=== PATIENT | female | born 1955 | race Caucasian/White ===

== ENCOUNTER → 2023-10-10 06:22 | Day surgery (SDC) | payer MEDICARE, SELFPAY | LOC: GI 06:22 | PROVIDERS: ATTENDING PHYSICIAN Surgery | DX: Z12.11 Encounter for screening for malignant neoplasm of colon (principal); Z80.0 Family history of malignant neoplasm of digestive organs; K57.30 Diverticulosis of large intestine without perforation or abscess without bleeding; K64.9 Unspecified hemorrhoids | CPT/HCPCS: 46221; G0105 ==

== ENCOUNTER → 2024-02-23 07:15 | Outpatient (REF) | payer MEDICARE, SELFPAY ==
[2024-02-23 08:13] LABS: % Basophils 1.9 % (0-2); % Eosinophils 2.6 % (0-6); % Immature Granulocytes 0.2 % (0-0.5); % Lymphocytes 33.9 % (20.5-51.1); % Monocytes 9.7 % (1.7-9.3); % Neutrophils 51.7 % (42.2-75.2); Absolute Basophils 0.1 10^3/uL (0-0.2); Absolute Eosinophils 0.2 10^3/uL (0-0.7); Absolute Lymphocytes 1.9 10^3/uL (1.2-3.4); Absolute Monocytes 0.6 10^3/uL (0.1-0.6); Absolute Neutrophils 2.9 10^3/uL (1.4-6.5); Hematocrit 36.2 % (37.0-47.0); Hemoglobin 12.2 g/dL (12.0-16.0); Mean Corp Hgb Conc. 33.7 g/dL (33.0-37.0); Mean Corpuscular Hgb 30.1 pg (27.0-31.0); Mean Corpuscular Volume 89.4 fL (81.0-99.0); Mean Platelet Volume 9.8 fL (7.4-10.4); Nucleated Red Blood Cells % 0 %; Platelet Count 302 10^3/uL (130-400); Red Blood Cell Count 4.05 10^6/uL (4.20-5.40); Red Cell Dist. Width 12.6 % (11.5-14.5); White Blood Cell Count 5.7 10^3/uL (4.8-10.8)
[2024-02-23 08:40] LABS: ALT (SGPT) 18 U/L (0-35); AST (SGOT) 25 U/L (14-36); Albumin 4.4 g/dl (3.5-5.0); Alkaline Phosphatase 60 U/L (38-126); Blood Urea Nitrogen 20 mg/dl (7-17); Calcium 9.7 mg/dl (8.4-10.2); Carbon Dioxide 27 mmol/L (22-30); Chloride 106 mmol/L (98-107); Glucose 100 mg/dl (70-99); HDL Cholesterol 58 mg/dl; LDL Cholesterol, Calculated 169 mg/dl; Sodium 139 mmol/L (135-145); Total Bilirubin 0.6 mg/dl (0.2-1.3); Total Cholesterol 249 mg/dl (50-199); Total Protein 6.8 g/dl (6.3-8.2); Triglyceride 112 mg/dl (10-149); Very Low Density Lipoprotein 22 mg/dl (0-30); eGFR > 60.00
[2024-02-23 08:46] LABS: Potassium 4.8 mmol/L (3.5-5.1)
[2024-02-23 08:58] LABS: Free T4 1.45 ng/dl (0.78-2.19)
[2024-02-23 09:12] LABS: TSH 2.65 uIU/ml (0.47-4.68)
[2024-02-23 11:33] LABS: Urine Albumin Negative (Neg - Trace); Urine Bilirubin Negative (Negative); Urine Character Clear (Clear); Urine Color Yellow; Urine Glucose Negative (Negative); Urine Ketone Negative (Negative); Urine Leukocyte Negative (Negative); Urine Nitrite Negative (Negative); Urine Occult Blood Negative (Negative); Urine Specific Gravity 1.015 (<1.030); Urine Urobilinogen Negative (Neg - 1+)
== END ==
LOC: MRI 3T 07:15
PROVIDERS: ATTENDING PHYSICIAN Podiatrist Foot & Ankle Surgery; FAMILY PHYSICIAN Family Medicine
DX: Z00.00 Encounter for general adult medical examination without abnormal findings (principal); Z13.29 Encounter for screening for other suspected endocrine disorder; Z13.220 Encounter for screening for lipoid disorders; Z13.228 Encounter for screening for other metabolic disorders; Z13.0 Encounter for screening for diseases of the blood and blood-forming organs and certain disorders involving the immune mechanism; E78.5 Hyperlipidemia, unspecified; E03.9 Hypothyroidism, unspecified
CPT/HCPCS: 36415; 73718; 80053; 80061; 81003; 84439; 84443; 85025

== ENCOUNTER → 2024-03-23 08:17 | Outpatient (REF) | payer MEDICARE, SELFPAY | LOC: MRI 3T 08:17 | PROVIDERS: ATTENDING PHYSICIAN Podiatrist Foot & Ankle Surgery; FAMILY PHYSICIAN Family Medicine | DX: S92.002A Unspecified fracture of left calcaneus, initial encounter for closed fracture (principal); M79.A22 Nontraumatic compartment syndrome of left lower extremity | CPT/HCPCS: 73718 ==

== ENCOUNTER → 2024-03-28 14:51 | Outpatient (REF) | payer MEDICARE, SELFPAY ==
[2024-03-28 15:02] VITALS: BP 164/79; BP_SYST 89
== END ==
LOC: RADI 14:51
PROVIDERS: ATTENDING PHYSICIAN Podiatrist Foot & Ankle Surgery
DX: M77.31 Calcaneal spur, right foot (principal); M77.32 Calcaneal spur, left foot; M79.672 Pain in left foot; M79.671 Pain in right foot
CPT/HCPCS: 20550; 76882; 76942

== ENCOUNTER → 2024-05-18 06:46 | Outpatient (REF) | payer MEDICARE, SELFPAY | LOC: MRI 06:46 | PROVIDERS: ATTENDING PHYSICIAN Physician Assistant Surgical; FAMILY PHYSICIAN Family Medicine | DX: M48.062 Spinal stenosis, lumbar region with neurogenic claudication (principal); M54.50 Low back pain, unspecified; M54.16 Radiculopathy, lumbar region | CPT/HCPCS: 72148 ==

== ENCOUNTER → 2024-07-26 08:37 | Outpatient (REF) | payer MEDICARE, SELFPAY ==
[2024-07-26 09:58] LABS: ALT (SGPT) 15 U/L (0-35); AST (SGOT) 19 U/L (14-36); Albumin 4.5 g/dl (3.5-5.0); Alkaline Phosphatase 53 U/L (38-126); Blood Urea Nitrogen 25 mg/dl (7-17); Calcium 9.8 mg/dl (8.4-10.2); Carbon Dioxide 26 mmol/L (22-30); Chloride 105 mmol/L (98-107); Direct Bilirubin 0.1 mg/dl (0.0-0.4); Glucose 100 mg/dl (70-99); HDL Cholesterol 66 mg/dl; LDL Cholesterol, Calculated 92 mg/dl; Potassium 4.4 mmol/L (3.5-5.1); Sodium 139 mmol/L (135-145); Total Bilirubin 0.5 mg/dl (0.2-1.3); Total Cholesterol 180 mg/dl (50-199); Total Protein 7.2 g/dl (6.3-8.2); Triglyceride 112 mg/dl (10-149); Very Low Density Lipoprotein 22 mg/dl (0-30); eGFR > 60.00
== END ==
LOC: REG 08:37
PROVIDERS: ATTENDING PHYSICIAN Family Medicine
DX: Z20.822 Contact with and (suspected) exposure to COVID-19 (principal); Z79.899 Other long term (current) drug therapy; Z00.00 Encounter for general adult medical examination without abnormal findings; Z13.29 Encounter for screening for other suspected endocrine disorder; Z13.220 Encounter for screening for lipoid disorders; Z13.228 Encounter for screening for other metabolic disorders
CPT/HCPCS: 36415; 80053; 80061; 82248

== ENCOUNTER → 2024-09-25 14:49 | Outpatient (REF) | payer MEDICARE, SELFPAY | LOC: RAD 14:49 | PROVIDERS: ATTENDING PHYSICIAN Family Medicine | DX: I65.23 Occlusion and stenosis of bilateral carotid arteries (principal) | CPT/HCPCS: 93880 ==

== ENCOUNTER 2024-11-22 08:17 | Inpatient (IN) | payer MEDICARE, SELFPAY ==
[2024-11-20 15:56] VITALS: BP 191/93
[2024-11-20 16:27] LABS: % Basophils 1.9 % (0-2); % Eosinophils 1.1 % (0-6); % Lymphocytes 33.3 % (20.5-51.1); % Monocytes 17.4 % (1.7-9.3); % Neutrophils 46.3 % (42.2-75.2); Absolute Basophils 0.1 10^3/uL (0-0.2); Absolute Eosinophils 0.1 10^3/uL (0-0.7); Absolute Lymphocytes 1.9 10^3/uL (1.2-3.4); Absolute Neutrophils 2.6 10^3/uL (1.4-6.5); Hemoglobin 12.3 g/dL (12.0-16.0); Mean Corp Hgb Conc. 33.2 g/dL (33.0-37.0); Mean Corpuscular Hgb 30.6 pg (27.0-31.0); Mean Platelet Volume 10.2 fL (7.4-10.4); Nucleated Red Blood Cells % 0 %; Platelet Count 261 10^3/uL (130-400); Red Blood Cell Count 4.02 10^6/uL (4.20-5.40); Red Cell Dist. Width 12.4 % (11.5-14.5); White Blood Cell Count 5.7 10^3/uL (4.8-10.8)
[2024-11-20 16:38] LABS: ALT (SGPT) 14 U/L (0-35); AST (SGOT) 20 U/L (14-36); Albumin 4.2 g/dl (3.5-5.0); Alkaline Phosphatase 54 U/L (38-126); Blood Urea Nitrogen 23 mg/dl (7-17); Calcium 9.8 mg/dl (8.4-10.2); Carbon Dioxide 25 mmol/L (22-30); Chloride 107 mmol/L (98-107); Glucose 107 mg/dl (70-99); Potassium 4.3 mmol/L (3.5-5.1); Sodium 143 mmol/L (135-145); Total Bilirubin 0.6 mg/dl (0.2-1.3); Total Protein 6.8 g/dl (6.3-8.2); eGFR > 60.00
[2024-11-20 16:49] LABS: Troponin I < 0.012 ng/ml
[2024-11-20] MEDS: LOW STRENGTH ASPIRIN 243 MG PO (19:17)
--- NOTE | 2024-11-20 19:19 | ED.GENMED ---
History of Present Illness
General
Chief Complaint: Chest Pain
Source: patient
Exam Limitations: none
Time Seen by Provider: 11/20/24 18:56
History of Present Illness
History of Present Illness:
See MDM
Past History
Past History
ED Past Medical History: GERD, Hypercholesterolemia and Hypothyroidism
ED Past Surgical History: Orthopedic
Social History
Tobacco: Non-smoker
Alcohol: None
Phy Exam
Physical Exam
Physical Exam:
See MDM
Scores
Heart Score for Chest Pain Patients
STEMI patient?: No
History: Highly Suspicious
ECG: Normal
Age: >/= 65 years
Risk Factors: 1 or 2 Risk Factors
Troponin: </= Normal Limit
Heart Score for Chest Pain Patients: 5
Heart Score Risk: 20.3% MACE over next 6 weeks
Course
Orders/Labs/Results
Orders:
Orders
11/20/24 15:53
EKG [Electrocardiogram (*1)] Urgent
Reason for Study: Chest Pain
EKG- Treatment ONCE
11/20/24 16:17
Complete Blood Count/With Diff Urgent
Comprehensive Metabolic Panel Urgent
Troponin I Urgent
11/20/24 19:13
Aspirin Chewable [Low Strength Aspirin] 243 mg PO NOW STA
CR Chest - 2 Views Urgent
Comment:
Reason For Exam: SOB with exertion
11/20/24 19:18
Consult Cardiology [CARDIOLOGY CONSULT] Routine
Consulting Provider: Dane Guzman
Was physician already notified: Yes
Abnormal Lab Results
11/20/24
16:17
RBC 4.02 L 10^6/uL
(4.20-5.40)
Absolute Monos (auto) 1.0 H 10^3/uL
(0.1-0.6)
Monocytes % 17.4 H %
(1.7-9.3)
BUN 23 H mg/dl
(7-17)
Glucose 107 H mg/dl
(70-99)
11/20/24 16:17
11/20/24 16:17
Vital Signs
Initial and Last Documented VS:
Initial Vital Signs
Temp Pulse Resp BP Pulse Ox
97.4 F 84 16 191/93 100
11/20/24 15:56 11/20/24 15:56 11/20/24 15:56 11/20/24 15:56 11/20/24 15:56
Last Documented Vital Signs
Temp Pulse Resp BP Pulse Ox
97.4 F 80 20 182/80 98
11/20/24 15:56 11/20/24 20:31 11/20/24 20:31 11/20/24 20:31 11/20/24 20:31
MDM/Problems Addressed
Differential Diagnosis Includes:
HPI and MDM Narrative:
68-year-old female presenting with exertional dyspnea. Symptoms have progressed over the past 4 days. Patient got worried because she is walking minimal distance and developing shortness of breath. She denies chest pain. She did have 1 episode
of back pain earlier today. She does have a strong family history of cardiac disease. She has a history of high cholesterol but denies prior cardiac issues.
On exam, she is well-appearing nontoxic. Heart regular rate and rhythm and lungs clear. EKG nonischemic and troponin negative. However, symptoms only last for 5 minutes or so. She did take a baby aspirin earlier today. Will give 3 more aspirin
and obtain chest x-ray.
Cardiology made aware and will evaluate tomorrow
Physical exam
General: Well appearing and non-toxic
HEENT: protecting airway
Neck: appears supple
CV: No evidence of cyanosis. Regular rhythm
Resp: No accessory muscle use. Lungs clear
Abd: Non-distended
Extremities: No deformities. No leg tenderness or unilateral swelling
Neuro: alert
Psych: Normal affect
Skin: Intact
Problems Addressed including Acute and Chronic Conditions affecting care:
1. Exertional dyspnea
Acuity: acute
Prognosis: stable
Details: Concern for anginal equivalent. Patient took baby aspirin this morning. Will give 3 more aspirin and have cardiology evaluate in morning
Updates
Chest x-ray clear. Case discussed with cardiology who will evaluate in the morning
Differential Diagnosis (but not limited to): Angina, exertional dyspnea, pneumonia
Testing considered: D-dimer about she is neither tachycardic nor hypoxic or has any evidence of DVT
Drug therapy (if applicable): OTC meds, please see d/c instruction regarding Rx drugs
Amount and/or Complexity of Data Reviewed
Clinical info obtained from: Patient
External data reviewed: N/A
Labs I independently reviewed (but not limited to): Troponin normal
Radiology: X-ray independently reviewed: Chest x-ray clear
Pulse Ox: not hypoxic
EKG independently reviewed: Sinus rhythm, normal axis, no STEMI
Pit Boss: Sinus rhythm
Critical Care: N/A
Risk of Complication:
Social Determinants of health: Good social support
Discussed with other providers: Hospitalist, typer
Escalation of Care includes Admit/Obs: Given the exertional dyspnea, will admit for further testing
Occasional wrong word or 'sound a like' substitutions may have occurred due to the inherent limitations of voice recognition software. Read the chart carefully and recognize, using context, where substitutions have occurred.
*Critical Care Note
Total Time (30-74mins, 75-104mins- exclusive of procedures): Not Applicable
ED Attending Note
-
Portions of this chart may have been created with voice recognition software.� Occasional wrong word or��sound alike� substitutions may have occurred due to the inherent limitations of voice recognition software.
Discharge Plan
Departure
Patient Disposition: Admit
Date of Disposition: 11/20/24
Time of Disposition: 20:45
Admit to: Telemetry
Presentation/result/management discussed w/ accepting MD/DO: Hospitalist
Discharge Problem:
Exertional dyspnea
Prescriptions:
No Action
ibuprofen 800 MG tablet
800 mg PO Q6HPRN PRN (Reason: pain)
famotidine 40 MG tablet
40 mg PO DAILY
levothyroxine 100 MCG tablet
100 mcg PO DAILY
gabapentin 300 MG capsule
1,500 mg PO BID
nabumetone 500 MG tablet
500 mg PO DAILY
Referrals:
Josesito Hurtado DO [Family Provider] -
Interventions
Interventions:
*Risk Screen - Suicide Last Done: 11/20/24 15:56
*Neglect/Abuse Screening Last Done: 11/20/24 15:56
ED- Cardiac Assessment Last Done: 11/20/24 18:36
Discharge Date and Time
Print Language: MALAYSIAN
[2024-11-20 20:31] VITALS: BP 182/80
--- NOTE | 2024-11-20 20:59 | HPS.HSE ---
Family Physician
-
Family Physician: Josesito Hurtado, DO
Chief Complaint
-
exertional dyspnea
History of Present Illness
Patient is a 68-year-old female with past medical history significant for hypothyroidism and hyperlipidemia who presented to [facility] ED for evaluation of exertional dyspnea. Patient reports noticing exertional dyspnea a few weeks ago during normal
walks with her . Started with just on inclines and has progressed to flat ground with short distance where she needed to stop to catch her breath. Today she had an episode when leaving work here at [facility] and walking to parking garage, when she
needed to stop before getting to garage she turned around and came back inside for evaluation. Patient does report midsternal chest discomfort and some discomfort between shoulder blades today when she became dyspneic and did resolve with rest.
Patient also notes recent diagnosis of left subclavian stenosis, following with Dr. Ashraf, who reports for symptoms early this morning of numbness and tingling in left arm that slowly resolved and sensation of palpitations in subclavian artery.
Medical History
Past Medical History
Past Medical History: Reports Other
Additional Past Medical History:
hypothyroidism
hyperlipidemia
neuropathy
osteopenia
left subclavian stenosis
Past Surgical History: Reports Other
Additional Past Surgical History:
Bi lateral knee replacement surgery 02/2021
Rotator cuff right shoulder
Meniscus tear on knee x3
Right ankle surgery 2007
epidural nerve blocks
Social History
Tobacco: Non-smoker
Alcohol: Occasional
Drug: None
Personal:
Living: With Family
Employment: Employed
Family History
Family History: Other (Brother: multiple MIs; Sister: [place])
Allergies / Home Medications
Allergies reflects when Allergies were last updated in [employer].
Home Medications with original date entered in [employer]
Allergy/Medication List:
Allergies
Allergy/AdvReac Type Severity Reaction Status Date / Time
No Known Allergies Allergy Verified 11/20/24 15:55
Home Medications
famotidine 40 mg tablet 40 mg PO DAILY 01/03/19
gabapentin 300 mg capsule 600 mg PO BID 01/03/19
ibuprofen 800 mg tablet 800 mg PO Q6HPRN PRN mild pain 01/03/19
levothyroxine 100 mcg tablet 100 mcg PO MOTUWETHFRSA 01/03/19
nabumetone 500 mg tablet 500 mg PO DAILY 01/03/19
acetaminophen 500 mg tablet (Tylenol Extra Strength) 500 mg PO Q6HPRN PRN mild pain 11/20/24
atorvastatin 10 mg tablet (Lipitor) 10 mg PO QPM 11/20/24
levothyroxine 100 mcg tablet (Synthroid) 150 mcg PO SALES 11/20/24
multivitamin with minerals-folic acid 80 mcg chewable tablet 2 tab PO DAILY 11/20/24
polyethylene glycol 3350 17 gram oral powder packet (Miralax) 17 g PO DAILY 11/20/24
tirzepatide (weight loss) 2.5 mg/0.5 mL subcutaneous pen injector 2.5 mg SC TU 11/20/24
Review of Systems
-
History Source: Patient
Constitutional: Reports No Symptoms
EENT: Reports No Symptoms
Respiratory: Reports Trouble Breathing (exertional dyspnea )
Cardiac: Reports Chest Pain (midsternal resolved with rest and associated with exertional dyspnea )
Abdomen/GI: Reports No Symptoms
: Reports No Symptoms
Musculoskeletal: Reports No Symptoms
Skin: Reports No Symptoms
Neurological: Reports No Symptoms
Endocrine: Reports No Symptoms
Hematologic/Lymphatic: Reports No Symptoms
Psych: Reports No Symptoms
Physical Exam
Vital Signs
Vital Signs
Temp Pulse Resp BP Pulse Ox
97.4 F 80 20 182/80 98
11/20/24 15:56 11/20/24 20:31 11/20/24 20:31 11/20/24 20:31 11/20/24 20:31
Physical Exam
General: Well Developed, Well Nourished, No Apparent Distress, Chills, Good Appetite and Poor Appetite
HEENT: NormoCephalic, Moist mucous membranes, Atraumatic, [place] Conjunctivae, Nose Appears Normal and Ears Appear Normal
Respiratory: Clear
Cardiac: S1/S2 and Regular Rhythm
Breast: Deferred by me
GI: Soft, Non Tender, Non Distended and Normal Bowel Sounds; No Organomegaly
Rectal: Deferred by Provider
Genito-urinary: Deferred by me
Musculoskeletal: No Clubbing, No Cyanosis and No Edema
Skin: IV/Catheter Site
Neuro: Awake, Alert, AO x 3 and Nonfocal/grossly intact
Psych: Calm and Intact Judgment/Insight
Laboratory Results
-
11/20/24 16:17
11/20/24 16:17
Laboratory Results
Total Bilirubin 0.6 mg/dl (0.2-1.3) 11/20/24 16:17
AST 20 U/L (14-36) 11/20/24 16:17
ALT 14 U/L (0-35) 11/20/24 16:17
Alkaline Phosphatase 54 U/L (38-126) 11/20/24 16:17
Troponin I < 0.012 ng/ml 11/20/24 16:17
Data Reviewed
-
Diagnostic Radiology: Report Reviewed by me (CXR: No acute cardiopulmonary process.)
Medical Tests (Nuc Med, Echo, EKG etc): Report Reviewed by me (EKG: NORMAL SINUS RHYTHM)
Lab Data: Labs Reviewed by me
Impression/Plan
-
IMPRESSION/PLAN:
#exertional dyspnea
#chest pain
#likely stable angina
EKG: NORMAL SINUS RHYTHM
CXR: No acute cardiopulmonary process.
- Admit to Telemetry
- Consult Cardiology
- ECHO in AM
- trend troponin
#hypertensive urgency
- monitor VS
- PRN hydralazine
#hypothyroidism
- continue levothyroxine
#neuropathy
- continue gabapentin
#osteopenia
- continue nabumetone
#hyperlipidemia
- continue atorvastatin
#left subclavian stenosis
- follow up out patient with Dr. Ashraf
Code status: full code
DVT Prophylaxis: Lovenox Sq
[2024-11-20 21:46] VITALS: BP 156/80
--- NOTE | 2024-11-20 21:48 | W.PN.UPDATE ---
Update Note
Progress Note Update
This is an addendum to H&P written by Janae Staples on 11/20/2024. Patient seen and examined independently with EX[employer] EMISSIONS INSPECTOR.
68-year-old female past medical history of left subclavian artery stenosis, Schatzki's ring, hyperlipidemia, hypothyroidism, GERD, presenting with progressive shortness of breath now with minimal exertion.
She does get periodic pain from Schatzki's ring but she developed chest pain today worse than that. Had an episode of left neck discomfort and left arm tingling which resolved this morning. Recently diagnosed with left subclavian artery stenosis
and supposed to follow-up with Dr. Ashraf.
Patient's blood pressure initially 191/93.
EKG shows normal sinus rhythmm without any ischemic changes. Troponin negative. Chest x-ray unremarkable.
Chest pain is tender to palpation suggesting musculoskeletal etiology although story is concerning for stable angina with hypertensive urgency.
Aspirin was given in ER. Cardiology was consulted.
Trend troponins. As needed hydralazine for blood pressure greater than 180 systolic. Check echocardiogram.
Patient needs outpatient follow-up with Dr. Ashraf for subclavian stenosis.
--- NOTE | 2024-11-20 23:01 | PTCARENOTE ---
Pt received from ED to [facility]2. Pt oriented to room and call penaloza.
[2024-11-20 23:57] VITALS: BP 132/68; BMI 30.7
[2024-11-21] VITALS (15 sets, daily range): BP systolic 110–170; BP diastolic 57–82
[2024-11-21 00:06] LABS: Troponin I < 0.012 ng/ml
[2024-11-21] MEDS: NEURONTIN 600 MG PO ×2 (05:40→16:45)
[2024-11-21] MEDS: SYNTHROID 100 MCG PO (05:40)
[2024-11-21 06:23] LABS: Troponin I < 0.012 ng/ml
[2024-11-21 06:32] LABS: HDL Cholesterol 37 mg/dl; LDL Cholesterol, Calculated 47 mg/dl; Total Cholesterol 98 mg/dl (50-199); Triglyceride 73 mg/dl (10-149); Very Low Density Lipoprotein 14 mg/dl (0-30)
--- NOTE | 2024-11-21 06:58 | W.PN.HOSP.TC ---
Addendum entered and electronically signed by Rick Becker MD 11/21/24 16:31:
Acute onset shortness of breath without evidence of hypoxemia nor tachycardia. Without evidence of unilateral swelling to suggest PE .
With associated chest discomfort however there is point tenderness making me believe that this could be musculoskeletal however denies lifting anything heavy or doing anything out of the ordinary
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
Troponin negative EKG without evidence of acute coronary
This could be cardiac/stable angina. Does have known history of Schatzki rings states this was different compared to her typical Schatzki rings symptoms
2D echocardiogram reviewed no regional wall motion abnormalities. EF 62% and normal diastolic function
Cardiology following planning for [facility]
Depending on findings/results could be discharged or may require further stay for medication adjustments if found to have obstructive disease
Additional findings would suggest outpatient pulmonary follow-up for PFTs.
Original Note:
Today's Communication/Plan
-
Pending cardio consult, likely d/c home today w/ OP follow up with Cardiology/vascular/PCP
Assessment / Plan
Assessment / Plan
68 year old female who [facility] with complaints for worsening exertional dyspnea and an episode of L arm pain/numbness/tingling associate with exertional dyspnea prior to presentation
#Exertional Dyspnea
#Chest Pain
- ECG showing sinus rhythm, troponin negative x3. Given x1 dose Aspirin in ED
- physical exam shows musculoskeletal component of cp, overall sx concerning for stable angina
- Echo showing EF 62%, no regional wall motion abnormalities, normal systolic/diastolic function
- pending cardio recs. Patient does not have a overnight stocker.
#Hypertensive Urgency
- 181/ -- BPs improving to stable, has not needed hydralazine
- hydralazine 5mg q5 prn for SBP >180
#H/o Left Subclavian Stenosis
- neurovascularly intact
- follows with Dr. Ashraf as OP
#Hyperlipidemia - c/w statin, cholesterol lowering diet
#Neuropathy - c/w gabapentin
#Hypothyroidism - c/w levothyroxine 100mcg Monday - Monday, 150mcg Monday
#Osteoporosis - c/w Nabumetone
#GERD
#H/o Schatzki Ring
- c/w Pepcid
#Chronic Constipation - c/w Miralax
Diet: cholesterol lowering
DVT PPx: Lovenox sc
Code Status: Full Code
Anticipated Discharge: 24 - 48 hours
Subjective/Interval History
-
Date of Service: November 21, 2024
Feeling well this morning. No acute complaints. No cp, sob, tightness, palpitations, lightheadedness, arm pain, numbness or tingling.
Objective Data
-
Vital Signs:
Vital Signs
Temp Pulse Resp BP Pulse Ox
97.9 F 79 18 122/57 98
11/21/24 03:21 11/21/24 03:21 11/21/24 03:21 11/21/24 03:21 11/21/24 03:21
I&O
11/19/24 11/20/24 11/21/24
06:59 06:59 06:59
Intake Total 120 / 120
Balance 120 / 120
Review of Systems
-
History Source: Patient
Constitutional: Reports No Symptoms
EENT: Reports No Symptoms Reported
Respiratory: Reports No Symptoms
Cardiac: Reports No Symptoms
Abdomen/GI: Reports No Symptoms
Genitourinary: Reports No Symptoms
Musculoskeletal: Reports No Symptoms
Skin: Reports No Symptoms
Neuro: Reports No Symptoms
Physical Exam
-
General: Well Developed, Well Nourished, No Apparent Distress, Comfortable and Conversant
HEENT: Normocephalic, Atraumatic, Moist Mucous Membranes, Anicteric, [place] Conjunctivae, Nose Appears Normal and Ears Appear Normal
Respiratory: Clear to Auscultation; Negative Wheezes, Rales or Rhonchi
Cardiac: Regular Rhythm, S1/S2 and Other (sternal and Left sided chest wall tenderness to palpation. Distal radial pulses full, symmetric. ); Negative Murmur or Rub
GI: Soft, Nontender, Nondistended and Normal Bowel Sounds
Genito-urinary: No Costovertebral Tender
Musculoskeletal: No Clubbing, No Cyanosis and No Edema
Skin: Warm, Dry and IV Access / Catheter Site
Neuro: Awake, Alert, Oriented and Other (5/5 muscle strength BL UE)
Psych: Calm
[2024-11-21] MEDS: MIRALAX 17 GRAMS PO (08:52)
[2024-11-21] MEDS: ZOO CHEWS 2 TABLET PO (08:53)
[2024-11-21] MEDS: RELAFEN 500 MG PO (08:54)
[2024-11-21] MEDS: PEPCID 40 MG PO (08:54)
[2024-11-21 10:21] LABS: Glycohemoglobin (HgbA1c) 5.2 % (4.0-5.6)
--- NOTE | 2024-11-21 10:24 | CON.CAR ---
Addendum entered and electronically signed by Dane Guzman DO 11/21/24 14:30:
I saw and examined the patient.
The Roundhouse Supervisor's note was reviewed and I agree with the note.
Comment:
Plan:
We discussed her symptoms. In light of her dyspnea on exertion and chest tightness that has been progressive, her left subclavian disease, as well as her cardiovascular risk factors including hyperlipidemia, strong family history of premature CAD
in her brother, we discussed options including stress testing versus left heart catheterization. She was agreeable to left heart catheterization. This is reasonable as her symptoms have progressed. We did review that her cardiac enzymes and EKG
were negative. Her echo was reviewed and EF is preserved. If she does not have significant CAD then she should be evaluated for other causes of dyspnea on exertion including consideration for pulmonary evaluation.
Her LDL is currently acceptable on Lipitor. This may change pending her cardiac catheterization results.
Her bp was initially elevated and has improved. Cont to monitor
Outpt cardiac follow up after testing
Further rec to follow pending cath results.
Discussed with her at bedside and interventional cardiology.
Original Note:
Consultation
Consultation Request
Date/Time Consultation Requested: 11/20/24 at 1918
Date/Time Consultation Performed: 11/21/24 at 1030
Requesting Provider: Dr. Rick Becker
Performing Provider: Dr. Guzman
Reason for Consultation: Chest pain
Medical History
-
History of Present Illness:
Patient came to [facility] ER last night with chest pain and cardiology is now consulted. Patient says that starting 1 month ago she noticed HO and left sided chest pressure during her usual nighttime walking routine. Pain would improve with rest and
then she would resume her walk. Patient noticed that pain started to happen earlier in her walk, but still always better with rest. Patient then had pain at rest while in bed yesterday morning and this was associated with palpitations and SOB. Pain
lasted less than 15 minutes and resolved with time. Patient worked in [employer] last evening and after punching out and walking towards her car she had more pain, SOB and palpitations and came to the ER. Symptoms resolved with rest. Patient has not
had recurrence of pain since admission.
PMH:
PAD with left subclavian stenosis
FH CAD
Hyperlipidemia
Peripheral neuropathy
Hypothyroidism
Past Medical History
Past Medical History: Other (in HPI)
Past Surgical History: Orthopedic ([facility])
Social History
Tobacco: Other (smoked for less than 1 year at age 14)
Alcohol: Occasional (less than once a month)
Drug: None
Personal:
Living: With Family
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
Family History
Family History: CAD (brother with NE at 50, sister with possible Takotsubo CM) and Hypertension
Allergies / Home Medications
Allergy/AdvReac Type Severity Reaction Status Date / Time
No Known Allergies Allergy Verified 11/20/24 15:55
�Medication �Instructions �Recorded �Confirmed �Type
famotidine 40 mg tablet 40 mg PO DAILY Gastrointestinal 01/03/19 11/21/24 History
Issue
gabapentin 300 mg capsule 600 mg PO BID Neurological 01/03/19 11/21/24 History
Condition
ibuprofen 800 mg tablet 800 mg PO Q6HPRN PRN mild pain 01/03/19 11/21/24 History
levothyroxine 100 mcg tablet 100 mcg PO MOTUWETHFRSA Thyroid 01/03/19 11/21/24 History
nabumetone 500 mg tablet 500 mg PO DAILY Anti-Inflammatory 01/03/19 11/21/24 History
acetaminophen 500 mg tablet 500 mg PO Q6HPRN PRN mild pain 11/20/24 11/21/24 History
(Tylenol Extra Strength)
atorvastatin 10 mg tablet (Lipitor) 10 mg PO QPM High Cholesterol 11/20/24 11/21/24 History
levothyroxine 100 mcg tablet 150 mcg PO SALES Thyroid 11/20/24 11/21/24 History
(Synthroid)
multivitamin with minerals-folic 2 tab PO DAILY Supplement 11/20/24 11/21/24 History
acid 80 mcg chewable tablet
polyethylene glycol 3350 17 gram 17 g PO DAILY Constipation 11/20/24 11/21/24 History
oral powder packet (Miralax)
tirzepatide (weight loss) 2.5 2.5 mg SC TU Weight LOSS 11/20/24 11/21/24 History
mg/0.5 mL subcutaneous pen injector
aspirin 81 mg chewable tablet 81 mg PO DAILY Blood Clot 11/21/24 11/21/24 History
Prevention/Tx
Review of Systems
-
History Source: Patient and Family ( sitting bedside)
All other systems: Negative unless noted
Physical Exam
Vital Signs
Temp Pulse Resp BP Pulse Ox
97.9 F 79 18 122/57 98
11/21/24 03:21 11/21/24 03:21 11/21/24 03:21 11/21/24 03:21 11/21/24 03:21
GEN: NAD. AAOx3
HEENT: EOMI, MMM
LUNGS: RA. CTA B/L, no wheeze
CV: SR on tele. Reg, S1/S2, no murmur
ABD: soft, BS+, NT, ND
EXT: No clubbing, cyanosis, lesions or edema B/L
NEURO: Gross non-focal
SKIN: Warm, dry and pink. No rash
Lab Results
11/20/24 16:17
11/20/24 16:17
Troponin I Cancelled 11/21/24 17:30
Impression / Plan
-
PCP: Dr. Josesito Hurtado
Card: None, seen initially by Dr. Guzman
Impression:
Chest pain
PAD with left subclavian stenosis
HTN urgency in the ER without h/o HTN
FH CAD
Hyperlipidemia
Peripheral neuropathy
Hypothyroidism
Echo 11/21/24: EF 62%, normal diastolic function, normal RV size and function, mild aortic regurgitation, mild TR with PAP 33 mmHg
Plan:
-Patient came to [facility] ER last night with chest pain and cardiology is now consulted. Patient says that starting 1 month ago she noticed HO and left sided chest pressure during her usual nighttime walking routine. Pain would improve with rest and
then she would resume her walk. Patient noticed that pain started to happen earlier in her walk, but still always better with rest. Patient then had pain at rest while in bed yesterday morning and this was associated with palpitations and SOB. Pain
lasted less than 15 minutes and resolved with time. Patient worked in [employer] last evening and after punching out and walking towards her car she had more pain, SOB and palpitations and came to the ER. Symptoms resolved with rest. Patient has not
had recurrence of pain since admission.
-ECG x3 reviewed by me and no acute ischemic changes
-Troponin serially undetectable.
-Patient with progressive angina and then resting chest pain yesterday morning and chest pain walking to her car after work last night. Given h/o PAD with left subclavian stenosis, hyperlipidemia and family history would recommend cardiac cath and
patient is in agreement.
-NPO
-Echo reviewed and summarized above.
-LDL 47 and outpatient dose of atorvastatin 10 mg daily has been continued.
-BP was HTN in the ER and she was managed initially as HTN urgency. Patient denies h/o HTN and feels strongly that she does not have HTN. Normal LV wall thickness on echo. BP has improved without intervention. Recommended to patient that she follow
BP at home, she does not currently own a BP machine.
--- NOTE | 2024-11-21 12:00 | CM ---
Patient seen bedside.
IA completed.
Patient lives with spouse nitin multistory home.
Patient independent prior to admission without assistive devices.
patient Drives and works here in [place].
[facility] form reviewed.
patient denies home care needs.
Patient and spouse aware of CM availability should eeds arise.
Spouse will transport.
PCP: Dr Hurtado
Pharmacy: [facility] [address]
Plan: home no needs.
[2024-11-21 17:55] LABS: ACT-LR - POC 337 Seconds (116-155)
--- NOTE | 2024-11-21 18:18 | ITS.CL.CATH ---
Sr. Media Manager - Catheterization
Cardiac Catheterization
Procedure Report:
LEFT HEART CATHETERIZATION AND CORONARY INTERVENTION
Date of Procedure: November 21, 2024
Referring: Dane Guzman D.O.
PROCEDURES:
1. Left heart catheterization, coronary angiogram.
2. Moderate sedation.
3. Successful percutaneous coronary artery intervention of a hazy 90% mid RCA stenosis with one 3.0 x 34 mm Medtronic [place] drug-eluting stent, postdilated using IVUS guidance with a 3.25 x 15 mm NC balloon at 16 ally distally and 18 ally proximally
with an excellent angiographic and IVUS based result.
4. Intravascular ultrasound (IVUS)
INDICATION: Concern for unstable angina
ACCESS: Right radial artery, 6 Norwegian sheath, under ultrasound-guided
Ultrasound was utilized for vascular access. The radial artery was visualized under ultrasound, and the vessel was patent and pulsatile. An image was stored permanently in the patient's medical record. Under direct ultrasound guidance, a 6 Norwegian
sheath was inserted into the artery using a micropuncture kit through a modified Seldinger technique.
HEMODYNAMICS : (mmHg)
AO (s/d) : 126/66
LV (s/d) : 129/1
LVEDP : 10
CORONARY FINDINGS
DOMINANCE: Right
LEFT MAIN: The left main artery is a large-caliber vessel which gives rise to the left anterior descending artery the left circumflex artery and the ramus intermedius branch. There is minimal luminal irregularities.
LEFT ANTERIOR DESCENDING: The left anterior descending artery is a small to medium caliber vessel which gives rise to 1 major diagonal branch as it courses to the anterior interventricular groove and wraps around the apex. There is at least mild
diffuse atherosclerotic plaque. In the mid LAD just distal to the diagonal branch there is 50 to 60% focal stenosis and an otherwise diffusely diseased vessel which is small in caliber at this point.
RAMUS INTERMEDIUS: The ramus intermedius branch is a small to medium caliber vessel with eccentric 60% stenosis in the midportion.
CIRCUMFLEX: The left circumflex artery is a medium caliber vessel which gives rise to 2 major obtuse marginal branches with moderate degree of tortuosity. OM1 is a small caliber vessel with eccentric 50 to 60% stenosis in the proximal portion.
RIGHT CORONARY ARTERY: The right coronary artery is a medium caliber, dominant vessel which gives rise to the right posterior descending artery and the right posterolateral system. There is a hazy up to 90% stenosis in the mid RCA which is thought
to be the culprit of presenting unstable angina. This was intervened upon as noted below.
CORONARY ANGIOGRAPHY: Decision was made to proceed with mid RCA percutaneous coronary artery intervention. The RCA was selectively engaged using a 6 Norwegian JR4 guide catheter. Additional heparin was given to maintain a therapeutic ACT throughout
the case. A1 90 cm 0.014' run-through coronary wire was successfully advanced into the distal vessel. The lesion was predilated using a 3.0 x 15 mm semi-compliant balloon at 14 ally with good expansion. The lesion was subsequently stented using
eight 3.0 x 34 mm Medtronic Mag[place] drug-eluting stent, postdilated using IVUS guidance with a 3.25 x 15 mm NC balloon at 16 ally distally and 18 ally proximally with an excellent angiographic result. Patient tolerated the procedure well without acute
complications. She was loaded with 180 mg of Brilinta at the end of the case along with a daily baby aspirin.
SEDATION: 67 minutes of procedural sedation was utilized. An independent medical pathologist was present to assist with and help manage the patient's level of consciousness and physiologic status.
RADIATION SUMMARY: Fluoro Time (min): 7, Dose (mGy): 422.0, DAP (Gy.cm2) : 29.355
Closure Device: Vascular band over right radial artery, 10 cc of air.
CONCLUSIONS
1. Successful percutaneous coronary artery intervention of a hazy 90% mid RCA stenosis with one 3.0 x 34 mm Medtronic Magan drug-eluting stent, postdilated using IVUS guidance with a 3.25 x 15 mm NC balloon at 16 ally distally and 18 ally proximally
with an excellent angiographic and IVUS based result.
2. In the mid LAD just distal to the diagonal branch there is 50 to 60% focal stenosis and an otherwise diffusely diseased vessel which is small in caliber at this point.
3. OM1 is a small caliber vessel with eccentric 50 to 60% stenosis in the proximal portion.
4. Normal LVEDP at 10 mmHg.
RECOMMENDATIONS
1. Uninterrupted dual antiplatelet therapy with daily baby aspirin and Brilinta 90 mg twice daily, high intensity statin and beta-darwin as tolerated.
2. Aggressive management of cardiovascular risk factors.
3. Wean radial band per protocol.
4. Outpatient referral for cardiac rehab.
Copy to: Dane Guzman D.O.
Juliana Costa MD, FACC, [facility]
[2024-11-21] MEDS: LIPITOR 40 MG PO (19:33)
--- NOTE | 2024-11-22 00:55 | PTCARENOTE ---
Received patient from [facility] into room 2247.Tele monitor applied--pt NSR. VSS. Denies any pain or discomfort. TR band removed at 22:50, dry dressing applied. Patient educated on activity restrictions. Radial pulse +, no hematoma noted at this
time. At approx 20:10 Patient ambulated w/ standby assist to the bathroom and c/o 'lightheadedness' while ambulating back to bed. BP obtained at this time 129/70. Patient recovered quickly after laying in bed, and denies any further dizziness or
lightheadedness. Patient instructed to ring for RN if any new symptoms develop. Call penaloza within reach.
[2024-11-22 04:11] VITALS: BP 125/79
[2024-11-22 04:53] LABS: Hematocrit 32.1 % (37.0-47.0); Hemoglobin 10.9 g/dL (12.0-16.0); Mean Corpuscular Hgb 30.8 pg (27.0-31.0); Mean Corpuscular Volume 90.7 fL (81.0-99.0); Mean Platelet Volume 10.3 fL (7.4-10.4); Platelet Count 237 10^3/uL (130-400); Red Blood Cell Count 3.54 10^6/uL (4.20-5.40); Red Cell Dist. Width 12.1 % (11.5-14.5); White Blood Cell Count 4.8 10^3/uL (4.8-10.8)
[2024-11-22 05:53] LABS: Blood Urea Nitrogen 16 mg/dl (7-17); Carbon Dioxide 23 mmol/L (22-30); Chloride 109 mmol/L (98-107); Estimated Creatinine Clearance 90 ml/min; Glucose 75 mg/dl (70-99); HDL Cholesterol 37 mg/dl; LDL Cholesterol, Calculated 54 mg/dl; Potassium 4.3 mmol/L (3.5-5.1); Sodium 142 mmol/L (135-145); Total Cholesterol 108 mg/dl (50-199); Triglyceride 86 mg/dl (10-149); Very Low Density Lipoprotein 17 mg/dl (0-30); eGFR > 60.00
[2024-11-22] MEDS: NEURONTIN 600 MG PO (05:59)
[2024-11-22] MEDS: SYNTHROID 100 MCG PO (05:59)
[2024-11-22 07:06] VITALS: BP 115/70
--- NOTE | 2024-11-22 08:23 | W.PN.HOSP.TC ---
Documented by User: Michael Bhat MD, Resident 11/22/24 16:43
Today's Communication/Plan
-
d/c on DAPT, increase atorvastatin to 40mg. f/u cardiac rehab, cardiology
Assessment / Plan
Assessment / Plan
68 year old female who presented to ED from [facility] with complaints for worsening exertional dyspnea and an episode of L arm pain/numbness/tingling associate with exertional dyspnea prior to presentation
#Exertional Dyspnea
#Chest Pain
#CAD s/p RCA drug eluting stent
- ECG showing sinus rhythm, troponin negative x3. Given x1 dose Aspirin in ED
- physical exam shows musculoskeletal component of cp, overall sx concerning for stable angina
- Echo showing EF 62%, no regional wall motion abnormalities, normal systolic/diastolic function
- Cardiac cath done, showing 90% mid RCA stenosis with 50-60% stenosis of OM1 and mid LAD. Drug eluting stent placed in RCA
- d/c on DAPT x1 year -- cardiology f/u -- cardiac rehab follow up OP
- increase Atorvastatin 40mg
#Hypertensive Urgency
- 181/ -- BPs improving to stable, has not needed hydralazine
- hydralazine 5mg q5 prn for SBP >180
#H/o Left Subclavian Stenosis
- neurovascularly intact
- follows with Dr. Ashraf as OP
#Hyperlipidemia - increase statin as above, cholesterol lowering diet
#Neuropathy - c/w gabapentin, Nabumetone
#Hypothyroidism - c/w levothyroxine 100mcg Monday - Monday, 150mcg Monday
#GERD
#H/o Schatzki Ring
- c/w Pepcid
#Chronic Constipation - c/w Miralax
Diet: cholesterol lowering
DVT PPx: Lovenox sc
Code Status: Full Code
Anticipated Discharge: Today
Subjective/Interval History
-
Date of Service: November 22, 2024
Feeling well, no acute complaints. no overnight events.
Objective Data
-
Labs:
Laboratory Results
11/22/24
04:22
WBC 4.8
Hgb 10.9 L
Hct 32.1 L
Plt Count 237
Sodium 142
Potassium 4.3
Chloride 109 H
Carbon Dioxide 23
BUN 16
Creatinine 0.6
Glucose 75
Calcium 9.0
Vital Signs:
Vital Signs
Temp Pulse Resp BP Pulse Ox
97.8 F 93 20 125/79 98
11/22/24 07:08 11/22/24 06:00 11/22/24 07:08 11/22/24 04:11 11/22/24 07:08
I&O
11/21/24 11/22/24 11/23/24
06:59 06:59 06:59
Intake Total 120 / 120 240 / 240
Balance 120 / 120 240 / 240
Review of Systems
-
All other systems: Reviewed and negative
Constitutional: Reports No Symptoms
EENT: Reports No Symptoms Reported
Respiratory: Reports No Symptoms
Cardiac: Reports No Symptoms
Abdomen/GI: Reports No Symptoms
Musculoskeletal: Reports No Symptoms
Skin: Reports No Symptoms
Physical Exam
-
General: Well Developed, Well Nourished, No Apparent Distress and Comfortable
HEENT: Normocephalic, Atraumatic, Moist Mucous Membranes, Anicteric, Purple Sage Conjunctivae, PERRLA, Nose Appears Normal and Ears Appear Normal
Respiratory: Clear to Auscultation; Negative Wheezes, Rales or Rhonchi
Cardiac: Regular Rhythm and S1/S2; Negative Murmur or Rub
GI: Soft, Nontender, Nondistended and Normal Bowel Sounds
Genito-urinary: No Costovertebral Tender
Musculoskeletal: No Clubbing, No Cyanosis and No Edema
Skin: Warm and Dry
Neuro: Awake, Alert and Oriented

Documented by User: Rick Becker MD 11/23/24 15:07
Today's Communication/Plan
-
d/c on DAPT, increase atorvastatin to 40mg. f/u cardiac rehab, cardiology
Attending attestation
Read, reviewed, and agree. See same day progress note for additional details. Time spent reviewing records in EMR, med rec, consults, notes, d/w consultants, nursing, family, and CM
[2024-11-22] MEDS: LOW STRENGTH ASPIRIN 81 MG PO (08:25)
[2024-11-22] MEDS: PEPCID 40 MG PO (08:25)
[2024-11-22] MEDS: BRILINTA 90 MG PO (08:25)
[2024-11-22] MEDS: ZOO CHEWS 2 TABLET PO (08:25)
[2024-11-22] MEDS: MIRALAX 17 GRAMS PO (08:26)
--- NOTE | 2024-11-22 08:45 | W.PN.CARDCBS ---
Addendum entered and electronically signed by Lupillo Cardoso MD 11/22/24 10:48:
Patient feels well, offers no complaints
Vital signs reviewed
Clear lungs, right radial site intact, regular rate and rhythm, no obvious murmurs
Abdomen benign
Extremities without clubbing cyanosis or edema
EKG reviewed: No abnormalities
Labs reviewed
Impression: See below
Plan:
Okay for discharge
Original Note:
Today's Communication / Plan
-
Patient is status post DINO to RCA, continue DAPT x 1 year
Uptitrated atorvastatin 40 mg daily
Outpatient cardiac rehab
Okay for discharge today
Impression / Plan
-
PCP: Dr. Josesito Hurtado
Card: None, seen initially by Dr. Guzman
Impression:
Chest pain
CAD s/p RCA stent 11/21/2024, also with moderate disease in LAD and OM1
PAD with left subclavian stenosis
HTN urgency in the ER without h/o HTN
FH CAD
Hyperlipidemia
Peripheral neuropathy
Hypothyroidism
Echo 11/21/24: EF 62%, normal diastolic function, normal RV size and function, mild aortic regurgitation, mild TR with PAP 33 mmHg
Left heart cath 11/17/2024: Mid LAD 50 to 60% stenosis, RI 60% mid stenosis, OM1 50 to 60% proximal stenosis, RCA 90% stenosis mid RCA�Medtronic [place] DINO placed
Plan:
-Patient came to ER 11/20/2024 with chest pain and cardiology consulted. Patient says that starting 1 month ago she noticed HO and left sided chest pressure during her usual nighttime walking routine. Pain would improve with rest and then she
would resume her walk. Patient noticed that pain started to happen earlier in her walk, but still always better with rest. Patient then had pain at rest while in bed yesterday morning and this was associated with palpitations and SOB. Pain lasted
less than 15 minutes and resolved with time. Patient worked in [employer] last evening and after punching out and walking towards her car she had more pain, SOB and palpitations and came to the ER. Symptoms resolved with rest. Patient has not had
recurrence of pain since admission.
-ECG x3 reviewed by me and no acute ischemic changes
-Troponin serially undetectable.
-Patient with progressive angina and then resting chest pain yesterday morning and chest pain walking to her car after work last night. Given h/o PAD with left subclavian stenosis, hyperlipidemia and family history would recommend cardiac cath
-Status post left heart cath showing multivessel coronary artery disease status post DINO to mid RCA
-DAPT with Brilinta and aspirin x 1 year, then likely aspirin alone
-Atorvastatin uptitrated to 40 mg daily.. She is anxious about increasing her dose from 10 mg to 40 mg. Explained reasoning for moderate intensity statin. She will try the 40 mg dose and contact the office if she develops any side effects.
-Cardiac rehab
-Telemetry personally reviewed: Normal sinus rhythm 60s to 80s
-EKG personally reviewed normal sinus rhythm, no ST-T wave abnormalities
-Follow-up at [facility] in 3 to 4 weeks with AUSTEN, [address] Guzman
-Echocardiogram with normal LV/RV function, LVEF 62%, mild AI and TR
-BP was HTN in the ER and she was managed initially as HTN urgency. Patient denies h/o HTN and feels strongly that she does not have HTN. Normal LV wall thickness on echo. BP has improved without intervention. BPs 117-130/68-72. Recommended to
patient that she follow BP at home, she does not currently own a BP machine.
Progress Note - Report Manager
Subjective
Date of Service: November 22, 2024
Chest soreness she was experiencing has resolved
Objective
Labs:
11/22/24 04:22
11/22/24 04:22
Labs
Hgb 10.9 g/dL (12.0-16.0) L 11/22/24 04:22
Hct 32.1 % (37.0-47.0) L 11/22/24 04:22
Plt Count 237 10^3/uL (130-400) 11/22/24 04:22
Sodium 142 mmol/L (135-145) 11/22/24 04:22
Potassium 4.3 mmol/L (3.5-5.1) 11/22/24 04:22
BUN 16 mg/dl (7-17) 11/22/24 04:22
Creatinine 0.6 mg/dL (0.6-1.0) 11/22/24 04:22
Glucose 75 mg/dl (70-99) 11/22/24 04:22
Troponins
11/20/24 11/20/24 11/20/24
16:17 23:18 23:30
Troponin I < 0.012 < 0.012 Cancelled
11/21/24 11/21/24 11/21/24
05:43 11:30 17:30
Troponin I < 0.012 Cancelled Cancelled
Vital Signs and I&O:
Vital Signs
Temp Pulse Resp BP Pulse Ox
97.8 F 83 20 115/70 98
11/22/24 07:08 11/22/24 08:00 11/22/24 07:08 11/22/24 07:06 11/22/24 07:08
Vital Signs
Temp Pulse Resp BP Pulse Ox
97.8 F 83 20 115/70 98
11/22/24 07:08 11/22/24 08:00 11/22/24 07:08 11/22/24 07:06 11/22/24 07:08
Intake & Output
11/20/24 11/21/24 11/22/24 11/23/24
06:59 06:59 06:59 06:59
Intake Total 120 / 120 240 / 240
Balance 120 / 120 240 / 240
Physical Exam
Physical Exam
GEN: No distress, awake, Ox3
HEENT: supple, anicteric, mmm
LUNGS: CTA, no wheezes/rales
CV: Reg, S1/S2, no murmur
ABD: soft, BS+, NT/ND
EXT: No edema. Right radial cath puncture site with dressing
NEURO: Gross non-focal
SKIN: No rash
[2024-11-22] MEDS: TYLENOL 650 MG PO (10:42)
--- NOTE | 2024-11-22 11:15 | CM ---
Reviewed chart. Mrs. Hinkle was transferred to IVU. Met with and Mrs. Hinkle to review discharge plans. She states prior to admission she resides with her spouse and daughte in a 4 story spilt level without any steps to enter. She
states she has six steps to get to each level. She states prior to admission she was independent with ambulation and adls. She states she does not have any DME in the home. She states she has a prescription plan with [facility] and uses [facility]. Telephone call to [facility] to check on co-pay for Brilinta 90 mg po bid. She has a deductible that has to be met so her first script would be $408.00. After she mets her deductible her co-pay would be $105.67 for a month.
Reviewed co-pays with her. She is aggreeable to the co-pay. Telephone call to [facility] to see if they have it in stock. They have 30 Tablets they can give her and then she has to go back in two weeks to get the other part of the script filled.
She is okay with this. Medical work-up in progress. The discharge plan is to return home with her spouse and daughter when medically stable.
[2024-11-22 11:25] VITALS: BP 120/78
[2024-11-22 11:59] VITALS: BP 120/78
--- NOTE | 2024-11-22 16:26 | W.DCSUMMARY ---
Discharge Summary
Discharge Data
Date of Admission: 11/22/24
Date of Discharge: 11/22/24
Total time spent discharging patient (in min): >30m
-
Pending Results: No
Hospital Course
Discharging Physician : Dr. Michael Bhat, Dr. Rick Becker
Disposition : Home
Primary care physician : Dr. Josesito Hurtaod
Principal Discharge diagnosis : R coronary angioplasty, CAD s/p RCA drug eluting stent, Exertional Dyspnea, Chest Pain, Hypertensive Urgency
Chronic Discharge diagnosis : H/o Left Subclavian Stenosis, Hyperlipidemia, Neuropathy, Hypothyroidism, Osteoporosis, GERD
Hospital Course :
68 year old female who presented to ED from [facility] with complaints for worsening exertional dyspnea and an episode of L arm pain/numbness/tingling associate with exertional dyspnea prior to presentation
#Exertional Dyspnea
#Chest Pain
#CAD s/p RCA drug eluting stent
- ECG on admission showing sinus rhythm, troponins negative x3. Given x1 dose Aspirin in ED which did not alter pain
- Physical exam shows musculoskeletal component of cp, however overall her sx were concerning for stable angina
- Echo was done, showing EF 62%, no regional wall motion abnormalities, normal systolic/diastolic function
- Patient underwent cardiac catheterization which showed 90% occlusion in RCA and 50-60% occlusion in OM1 and LAD. Her RCA was stented.
- She was started on Ticagrelor 90mg BID, along with her home aspirin
- Her Atorvastatin was increased to 40mg
- She was given instructions to follow up with cardiology and cardiac rehab
#Hypertensive Urgency
- She had elevated BPs on admission into the . Hydralazine was ordered but her BPs improved to stable and she did not need hydralazine.
#H/o Left Subclavian Stenosis
- She remained neurovascularly intact during her hospital stay. Will maintain follow up with Dr. Ashraf as OP
#Hyperlipidemia - She was kept on cholesterol lowering diet and her statin was increased as above.
#Neuropathy - she was continued on gabapentin and nabumetone
#Hypothyroidism - she was continued on her home dose levothyroxine
#GERD
#H/o Schatzki Ring
- she was continued on home Pepcid
#Chronic Constipation - she was continued on Miralax w/o abdominal symptoms.
Important imaging findings :
CR Chest - 2 Views:
FINDINGS:
Lungs: No convincing focal infiltrates. No significant pleural effusions. No visualized pneumothorax.
Heart: Cardiac and mediastinal contours are unremarkable. No overt pulmonary vascular congestion.
Osseous structures: No acute abnormalities.
IMPRESSION:
No acute cardiopulmonary process.
Echocardiography Report:
CONCLUSIONS
Normal left ventricular size, wall thickness and systolic function. No regional
wall motion abnormalities are seen. LV ejection fraction is 62% by volumetric
assessment. Normal diastolic function.
Normal right ventricular size and function.
Mild aortic regurgitation.
Mild tricuspid regurgitation. Estimated pulmonary artery pressure of 33 mmHg,
assuming a right atrial pressure of 3 mmHg.
No prior study for comparison
Procedure findings :
LEFT HEART CATHETERIZATION AND CORONARY INTERVENTION:
CONCLUSIONS
1. Successful percutaneous coronary artery intervention of a hazy 90% mid RCA stenosis with one 3.0 x 34 mm Medtronic Magan drug-eluting stent, postdilated using IVUS guidance with a 3.25 x 15 mm NC balloon at 16 ally distally and 18 ally proximally
with an excellent angiographic and IVUS based result.
2. In the mid LAD just distal to the diagonal branch there is 50 to 60% focal stenosis and an otherwise diffusely diseased vessel which is small in caliber at this point.
3. OM1 is a small caliber vessel with eccentric 50 to 60% stenosis in the proximal portion.
4. Normal LVEDP at 10 mmHg.
Discharge Plan
-
Patient Disposition: Home (Routine Discharge)
Discharge Diagnosis/Procedures: Angioplasty with stent to RCA
Angina
Condition: Good
Diet: Low Cholesterol
Driving Restrictions: No driving for 24 hours
Other Services: Cardiac Rehab
Instructions: Ticagrelor, How to take anticoagulants safely, Atorvastatin
Stand Alone Forms: DC Instructions- Cath/EP Lab
Referrals:
[facility] [Outside] - 12/18/24 9:30 am
(Cardiac Rehab Orientation appointment is on 12/18/24 at 9:30 am
The Cardiac Rehab gym is located on the first floor of the [facility].)
Josesito Hurtado DO [Family Provider] -
Maddie Rowe CRNP [Specified Professional Personl] - 12/16/24 7:40 am (You have a follow-up appointment with Dr. Guzman's nurse practitioner, ALICJA Lynne,at the [facility]. Call with questions.)
Prescriptions:
New
ticagrelor [Brilinta] 90 mg Tablet
90 mg PO BID 30 Days Qty: 60 12RF
atorvastatin 40 mg Tablet
40 mg PO QPM 30 Days Qty: 30 4RF
Continued
famotidine 40 MG tablet
40 mg PO DAILY
levothyroxine 100 MCG tablet
100 mcg PO MOTUWETHFRSA
gabapentin 300 MG capsule
600 mg PO BID
Rx Instructions:
0600 1800
nabumetone 500 MG tablet
500 mg PO DAILY
polyethylene glycol 3350 [Miralax] 17 gram Powder In Packet
17 g PO DAILY
acetaminophen [Tylenol Extra Strength] 500 mg Tablet
500 mg PO Q6HPRN PRN (Reason: mild pain)
levothyroxine [Synthroid] 100 mcg Tablet
150 mcg PO SALES
multivit with min-folic acid 80 mcg Tablet,Chewable
2 tab PO DAILY
tirzepatide (weight loss) 2.5 mg/0.5 mL Pen Injector
2.5 mg SC TU
aspirin 81 mg Tablet,Chewable
81 mg PO DAILY
Discontinued
ibuprofen 800 MG tablet
800 mg PO Q6HPRN PRN (Reason: mild pain)
atorvastatin [Lipitor] 10 mg Tablet
10 mg PO QPM
Discharge Orders:
Discharge Patient (As Directed); Ordered 11/22/24
Ordered By: Rick Becker
Care Plan Goals
Care Plan Goals:
Problem: Readiness for enhanced knowledge related to diagnosis and treatment plan
Goal: Understand your diagnosis and treatment plan needs, including medications if applicable.
Instructions: Know your diagnosis, underlying causes and treatment plan options, including medications if applicable. Consult with your health care team to learn about your diagnosis and treatment plan, including medications if applicable.
Discharge Date and Time
Discharge Date/Time: 11/22/24 13:09
Print Language: ALBANIAN
[2024-11-25 14:33] LABS: ACT-LR - POC 236 Seconds (116-155)
== END 2024-11-22 13:09 | disposition home or self-care (01) | DRG 322 ==
LOC: IVU 08:17
PROVIDERS: Emergency Medicine; Internal Medicine Interventional Cardiology; Nurse Practitioner Adult Health; Nurse Practitioner Family; ADMITTING PHYSICIAN Hospitalist; ATTENDING PHYSICIAN Hospitalist; CONSULT PHYSICIAN Nuclear Medicine Nuclear Cardiology; EMERGENCY PHYSICIAN Student in an Organized Health Care Education/Training Program; FAMILY PHYSICIAN Family Medicine
PROC: B240ZZ3 Ultrasonography of Single Coronary Artery, Intravascular (ICD-10-PCS; 2024-11-21)
PROC: 027034Z Dilation of Coronary Artery, One Artery with Drug-eluting Intraluminal Device, Percutaneous Approach (ICD-10-PCS; 2024-11-21)
PROC: B211YZZ Fluoroscopy of Multiple Coronary Arteries using Other Contrast (ICD-10-PCS; 2024-11-21)
PROC: 4A023N7 Measurement of Cardiac Sampling and Pressure, Left Heart, Percutaneous Approach (ICD-10-PCS; 2024-11-21)
DX: I25.118 Atherosclerotic heart disease of native coronary artery with other forms of angina pectoris (principal); I16.0 Hypertensive urgency; I10 Essential (primary) hypertension; G62.9 Polyneuropathy, unspecified; E78.00 Pure hypercholesterolemia, unspecified; E03.9 Hypothyroidism, unspecified; K21.9 Gastro-esophageal reflux disease without esophagitis; K59.09 Other constipation; I70.8 Atherosclerosis of other arteries; Z96.653 Presence of artificial knee joint, bilateral; Z79.899 Other long term (current) drug therapy; Z79.890 Hormone replacement therapy; Z79.82 Long term (current) use of aspirin; Z79.02 Long term (current) use of antithrombotics/antiplatelets; Z82.49 Family history of ischemic heart disease and other diseases of the circulatory system
CPT/HCPCS: 71046; 80048; 80053; 80061; 83036; 84484; 85025; 85027; 85347; 92978; 93005; 93306; 99152; 99153; 99291; C1725; C1753; C1874; C1894; C9600; Q9967

== ENCOUNTER → 2024-12-04 10:29 | Outpatient (REF) | payer MEDICARE, SELFPAY | LOC: RAD 10:29 | PROVIDERS: ATTENDING PHYSICIAN Family Medicine | DX: R07.81 Pleurodynia (principal) | CPT/HCPCS: 71101 ==

== ENCOUNTER 2024-12-27 09:41 | Outpatient (RCR) | payer MEDICARE, SELFPAY | END 2024-12-27 23:59 | disposition home or self-care (01) | LOC: CRHB 09:41 | PROVIDERS: ATTENDING PHYSICIAN Nuclear Medicine Nuclear Cardiology; FAMILY PHYSICIAN Family Medicine | DX: I25.10 Atherosclerotic heart disease of native coronary artery without angina pectoris (principal); Z95.5 Presence of coronary angioplasty implant and graft | CPT/HCPCS: G0422; G0423 ==

== ENCOUNTER → 2025-01-24 09:04 | Outpatient (REF) | payer MEDICARE, SELFPAY ==
[2025-01-24 09:59] LABS: % Basophils 1.4 % (0-2); % Eosinophils 1.7 % (0-6); % Immature Granulocytes 0.3 % (0-0.5); % Lymphocytes 15.8 % (20.5-51.1); % Monocytes 8.1 % (1.7-9.3); % Neutrophils 72.7 % (42.2-75.2); Absolute Basophils 0.1 10^3/uL (0-0.2); Absolute Eosinophils 0.1 10^3/uL (0-0.7); Absolute Monocytes 0.5 10^3/uL (0.1-0.6); Absolute Neutrophils 4.6 10^3/uL (1.4-6.5); Hematocrit 35.6 % (37.0-47.0); Hemoglobin 11.6 g/dL (12.0-16.0); Mean Corp Hgb Conc. 32.6 g/dL (33.0-37.0); Mean Corpuscular Hgb 29.7 pg (27.0-31.0); Mean Corpuscular Volume 91.3 fL (81.0-99.0); Mean Platelet Volume 10.5 fL (7.4-10.4); Nucleated Red Blood Cells % 0 %; Platelet Count 311 10^3/uL (130-400); Red Cell Dist. Width 12.9 % (11.5-14.5); White Blood Cell Count 6.4 10^3/uL (4.8-10.8)
[2025-01-24 10:08] LABS: Urine Albumin Negative (Neg - Trace); Urine Bilirubin Negative (Negative); Urine Character Clear (Clear); Urine Color Yellow; Urine Glucose Negative (Negative); Urine Ketone Negative (Negative); Urine Leukocyte Negative (Negative); Urine Nitrite Negative (Negative); Urine Occult Blood Negative (Negative); Urine Urobilinogen Negative (Neg - 1+)
[2025-01-24 10:21] LABS: Glycohemoglobin (HgbA1c) 5.1 % (4.0-5.6)
[2025-01-24 10:22] LABS: ALT (SGPT) 13 U/L (0-35); AST (SGOT) 19 U/L (14-36); Albumin 4.3 g/dl (3.5-5.0); Alkaline Phosphatase 55 U/L (38-126); Blood Urea Nitrogen 17 mg/dl (7-17); Calcium 9.7 mg/dl (8.4-10.2); Carbon Dioxide 26 mmol/L (22-30); Chloride 107 mmol/L (98-107); Glucose 89 mg/dl (70-99); HDL Cholesterol 46 mg/dl; LDL Cholesterol, Calculated 44 mg/dl; Potassium 4.4 mmol/L (3.5-5.1); Sodium 142 mmol/L (135-145); Total Bilirubin 0.7 mg/dl (0.2-1.3); Total Cholesterol 103 mg/dl (50-199); Total Protein 6.9 g/dl (6.3-8.2); Triglyceride 67 mg/dl (10-149); Very Low Density Lipoprotein 13 mg/dl (0-30); eGFR > 60.00
[2025-01-24 10:47] LABS: Free T4 2.16 ng/dl (0.78-2.19); Vitamin D, 25-OH*** 55.5 ng/mL (30-80)
[2025-01-24 11:01] LABS: TSH < 0.02 uIU/ml (0.47-4.68)
== END ==
LOC: RAD 09:04
PROVIDERS: ATTENDING PHYSICIAN Nurse Practitioner; FAMILY PHYSICIAN Family Medicine
DX: Z00.00 Encounter for general adult medical examination without abnormal findings (principal); E66.3 Overweight; E78.2 Mixed hyperlipidemia; I25.10 Atherosclerotic heart disease of native coronary artery without angina pectoris; E78.5 Hyperlipidemia, unspecified; Z79.899 Other long term (current) drug therapy; M85.80 Other specified disorders of bone density and structure, unspecified site
CPT/HCPCS: 80053; 80061; 81003; 82306; 83036; 84439; 84443; 85025

== ENCOUNTER 2025-01-27 08:58 | Outpatient (RCR) | payer MEDICARE, SELFPAY | END 2025-01-27 23:59 | disposition home or self-care (01) | LOC: CRHB 08:58 | PROVIDERS: ATTENDING PHYSICIAN Nuclear Medicine Nuclear Cardiology; FAMILY PHYSICIAN Family Medicine | DX: I25.10 Atherosclerotic heart disease of native coronary artery without angina pectoris (principal); Z95.5 Presence of coronary angioplasty implant and graft | CPT/HCPCS: G0422; G0423 ==

== ENCOUNTER 2025-02-26 08:45 | Outpatient (RCR) | payer MEDICARE, SELFPAY | END 2025-02-26 23:59 | disposition home or self-care (01) | LOC: CRHB 08:45 | PROVIDERS: ATTENDING PHYSICIAN Nuclear Medicine Nuclear Cardiology; FAMILY PHYSICIAN Family Medicine | DX: I25.10 Atherosclerotic heart disease of native coronary artery without angina pectoris (principal); Z95.5 Presence of coronary angioplasty implant and graft | CPT/HCPCS: G0422; G0423 ==

== ENCOUNTER 2025-03-28 08:52 | Outpatient (RCR) | payer MEDICARE, SELFPAY | END 2025-03-28 23:59 | disposition home or self-care (01) | LOC: CRHB 08:52 | PROVIDERS: ATTENDING PHYSICIAN Nuclear Medicine Nuclear Cardiology; FAMILY PHYSICIAN Family Medicine | DX: I25.10 Atherosclerotic heart disease of native coronary artery without angina pectoris (principal); Z95.5 Presence of coronary angioplasty implant and graft | CPT/HCPCS: 93797; 93798; G0422; G0423 ==

== ENCOUNTER 2025-04-09 09:39 | Outpatient (RCR) | payer MEDICARE, SELFPAY ==
[2025-04-09 13:50] LABS: Very Low Density Lipoprotein 15 mg/dl (0-30)
[2025-04-09 13:54] LABS: HDL Cholesterol 70 mg/dl; LDL Cholesterol, Calculated 66 mg/dl
== END 2025-04-09 10:42 | disposition home or self-care (01) ==
LOC: CRHB 09:39
PROVIDERS: ATTENDING PHYSICIAN Nuclear Medicine Nuclear Cardiology; FAMILY PHYSICIAN Family Medicine
DX: I25.10 Atherosclerotic heart disease of native coronary artery without angina pectoris (principal); Z95.5 Presence of coronary angioplasty implant and graft
CPT/HCPCS: 36415; 80061; 84439; 84443; G0422; G0423